=== PATIENT | female | born 1990 | race Caucasian/White ===

== ENCOUNTER 2017-09-20 13:06 | Emergency (ER) | payer MEDICAID ==
[~2017-09-20] VITALS: Ht 167.6 cm; Wt 54.5 kg
[2017-09-20 13:08] VITALS: BP 100/65
== END 2017-09-20 14:20 | disposition home or self-care (01) ==
LOC: ED 14:00
DX: S60.221A Contusion of right hand, initial encounter (principal); F17.200 Nicotine dependence, unspecified, uncomplicated; F32.9 Major depressive disorder, single episode, unspecified; W01.0XXA Fall on same level from slipping, tripping and stumbling without subsequent striking against object, initial encounter; Y93.01 Activity, walking, marching and hiking; Y99.8 Other external cause status; Y92.89 Other specified places as the place of occurrence of the external cause
CPT/HCPCS: 29125; 99284

== ENCOUNTER 2018-01-19 10:32 | Emergency (ER) | payer MEDICAID ==
[~2018-01-19] VITALS: Ht 167.6 cm; Wt 55.2 kg
[2018-01-19 10:38] VITALS: BP 108/74
[2018-01-19] MEDS ORDERED: KETOROLAC 30 MG/1 ML ONE (10:54)
[2018-01-19] MEDS ORDERED: DIAZEPAM 5 MG TABLET ONE (10:54)
[2018-01-19] MEDS ORDERED: KETOROLAC 30 MG/1 ML IM ONE (11:00)
[2018-01-19] MEDS ORDERED: DIAZEPAM 5 MG TABLET PO ONE (11:00)
[2018-01-19] MEDS ORDERED: TEST200V3 IM (11:17)
[2018-01-19 11:34] LABS: MICROSCOPIC NOT IND
[2018-01-19 11:39] LABS: CULTURE INDICATED? NO
== END 2018-01-19 12:17 | disposition home or self-care (01) ==
LOC: ED 12:11
DX: G89.29 Other chronic pain (principal); G89.11 Acute pain due to trauma; M54.5 Low back pain; X58.XXXA Exposure to other specified factors, initial encounter; Y93.89 Activity, other specified; Y92.89 Other specified places as the place of occurrence of the external cause; Y99.8 Other external cause status
CPT/HCPCS: 72110; 81003; 96372; 99285; J1885

== ENCOUNTER 2018-01-26 11:57 | Emergency (ER) | payer MEDICAID ==
[~2018-01-26] VITALS: Ht 167.6 cm; Wt 56.0 kg
[~2018-01-26 11:57] MED LIST: TEST200V3 IM
[2018-01-26] MEDS ORDERED: HYDROcodone/APAP 7.5-325MG/15ML UDC PO ONE (12:30)
[2018-01-26] MEDS ORDERED: DEXAMETHASONE 4 MG TABLET PO ONE (12:30)
[2018-01-26] MEDS ORDERED: HYDROcodone/APAP 7.5-325MG/15ML UDC ONE (12:31)
[2018-01-26] MEDS ORDERED: DEXAMETHASONE 4 MG TABLET ONE (12:31)
[2018-01-26 13:13] VITALS: BP 93/59
== END 2018-01-26 13:15 | disposition home or self-care (01) ==
LOC: ED 13:10
DX: J02.9 Acute pharyngitis, unspecified (principal); J45.909 Unspecified asthma, uncomplicated; F32.9 Major depressive disorder, single episode, unspecified; Z87.891 Personal history of nicotine dependence
CPT/HCPCS: 87081; 87880; 99284

== ENCOUNTER 2018-01-31 12:47 | Emergency (ER) | payer MEDICAID ==
[~2018-01-31] VITALS: Ht 165.1 cm; Wt 55.8 kg
[2018-01-31 12:52] VITALS: BP 111/82
== END 2018-01-31 13:39 | disposition home or self-care (01) ==
LOC: ED 13:20
DX: B34.9 Viral infection, unspecified (principal); J45.909 Unspecified asthma, uncomplicated; F32.9 Major depressive disorder, single episode, unspecified; Z87.19 Personal history of other diseases of the digestive system
CPT/HCPCS: 99283

== ENCOUNTER 2018-06-06 15:59 | Emergency (ER) | payer MEDICAID ==
[~2018-06-06] VITALS: Ht 167.6 cm; Wt 58.0 kg
[2018-06-06 16:23] VITALS: BP 116/75
--- NOTE | 2018-06-06 17:54 | NUR ---
break RN note: report received from SUZETTE Ramos. pt a&o, resps even and unlabored. pt given dc instructions and script. pt educated regarding rx for flexiril. pt amb to dc desk with steady gait, accompanied by s/o. huyen at dc.
== END 2018-06-06 17:55 | disposition home or self-care (01) ==
LOC: ED 16:54
DX: M54.5 Low back pain (principal); J45.909 Unspecified asthma, uncomplicated
CPT/HCPCS: 72110; 99283

== ENCOUNTER 2018-07-15 21:07 | Emergency (ER) | payer MEDICAID ==
[~2018-07-15] VITALS: Ht 167.6 cm; Wt 55.6 kg
[2018-07-15 21:26] VITALS: BP 95/63
== END 2018-07-15 22:08 | disposition home or self-care (01) ==
LOC: ED 22:02
DX: M54.5 Low back pain (principal); Z76.0 Encounter for issue of repeat prescription; J45.909 Unspecified asthma, uncomplicated; F32.9 Major depressive disorder, single episode, unspecified
CPT/HCPCS: 99283

== ENCOUNTER → 2018-09-06 | Outpatient (CLI) | payer MEDICAID | END | disposition home or self-care (01) | LOC: RAD 14:39 | PROVIDERS: ATTEND Neurological Surgery | DX: M54.5 Low back pain (principal); G89.29 Other chronic pain; J45.909 Unspecified asthma, uncomplicated; F32.9 Major depressive disorder, single episode, unspecified; Z87.891 Personal history of nicotine dependence | CPT/HCPCS: 72120 ==

== ENCOUNTER → 2018-09-08 | Outpatient (CLI) | payer MEDICAID | END | disposition home or self-care (01) | LOC: RAD 13:06 | PROVIDERS: ATTEND Neurological Surgery | DX: M54.5 Low back pain (principal) | CPT/HCPCS: 72148 ==

== ENCOUNTER 2019-03-03 11:20 | Emergency (ER) | payer MEDICAID ==
[~2019-03-03] VITALS: Ht 167.6 cm; Wt 57.7 kg
--- NOTE | 2019-03-03 11:54 | NUR ---
FIRST CONTACT WITH PT. PT C/O COLD SYMPTOMS X 2 WEEKS, N/V/D X 1 WEEK. INTERMITTANT LIRA AND CHILLS AT HOME. PT'S AOX4. RESPS EVEN AND UNLABORED. BP/SPO2 MONITORS IN PLACE. CALL LIGHT WITHIN REACH. WARM BLANCKET GIVEN.
--- NOTE | 2019-03-03 12:26 | NUR ---
EDMD AT BEDSIDE TO EVALUATE AT THIS TIME.
[2019-03-03 13:06] VITALS: BP 112/63
[2019-03-03 13:19] LABS: RAPID INFLUENZA A Negative (Negative); RAPID INFLUENZA B Negative (Negative)
--- NOTE | 2019-03-03 13:34 | NUR ---
Patient given discharge instructions and they have confirmed that they understand the instructions. Patient ambulatory with steady gait.
== END 2019-03-03 13:35 | disposition home or self-care (01) ==
LOC: ED 13:25
DX: B34.9 Viral infection, unspecified (principal); Z87.19 Personal history of other diseases of the digestive system; Z87.891 Personal history of nicotine dependence
CPT/HCPCS: 87400; 99283

== ENCOUNTER 2019-11-16 18:43 | Emergency (ER) | payer MEDICAID ==
[~2019-11-16] VITALS: Ht 167.6 cm; Wt 51.6 kg
--- NOTE | 2019-11-16 19:23 | NUR ---
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
[2019-11-16] MEDS ORDERED: KETOROLAC 30 MG/1 ML ONE (19:54)
[2019-11-16] MEDS ORDERED: DIAZEPAM 5 MG TABLET ONE (19:55)
[2019-11-16] MEDS ORDERED: DIAZEPAM 5 MG TABLET PO ONE (20:00)
[2019-11-16] MEDS ORDERED: KETOROLAC 30 MG/1 ML IM ONE (20:00)
[2019-11-16] MEDS ORDERED: LORazepam 1MG TABLET ONE (20:12)
[2019-11-16] MEDS ORDERED: LORazepam 1MG TABLET PO ONE (20:30)
[2019-11-16 22:07] VITALS: BP 94/70
--- NOTE | 2019-11-16 22:08 | NUR ---
PT SLEEPING IN BED WITH PT FRIND AT SIDE, PT HAS NO WANTS OR NEEDS AT THIS TIME, PT ON MONITOR, STOCK ROOM MANAGER WILL CONTINUE TO MONITOR PT.
== END 2019-11-16 22:43 ==
LOC: ED 22:37
DX: J18.9 Pneumonia, unspecified organism (principal); R06.02 Shortness of breath; Z20.828 Contact with and (suspected) exposure to other viral communicable diseases; J45.909 Unspecified asthma, uncomplicated; R00.0 Tachycardia, unspecified; M54.5 Low back pain; G89.29 Other chronic pain; Z87.891 Personal history of nicotine dependence
CPT/HCPCS: 36415; 71046; 72110; 87635; 93005; 96372; 99285; J1885

== ENCOUNTER 2019-12-05 13:29 | Emergency (ER) | payer MEDICAID ==
[~2019-12-05] VITALS: Ht 167.6 cm; Wt 52.3 kg
--- NOTE | 2019-12-05 13:35 | NUR ---
PT BIB [facility] FROM HOME FOR ACUTE ANXIETY/MANIC BEHAVIOR. PT TALKING INCESSANTLY, STATES HE THINKS HE HAD COVID, C/O CYST IN HIS BRAIN. PER EMS, PT HAS BEEN TAKING HIS NORMAL MEDS. PT CURRENTLY LIVES WITH GRANDMOTHER. A&OX4 UPON ARRIVAL. NO INVTERVENTIONS BY EMS. ERP AT BS IMMEDIATELY.
[2019-12-05 14:13] LABS: BASOPHILS # (AUTO) 0.01 x10^3/uL (0-0.1); BASOPHILS % (AUTO) 0 % (0-1); EOSINOPHILS # (AUTO) 0.01 x10^3/uL (0-0.4); EOSINOPHILS % (AUTO) 0 % (1-7); LYMPHOCYTES # (AUTO) 0.66 x10^3/uL (1-3.4); LYMPHOCYTES % (AUTO) 15 % (22-44); MD NO; MEAN CORPUSCULAR HEMOGLOBIN 31.3 pg (27.0-34.8); MEAN CORPUSCULAR HGB CONC 32.8 g/dL (32.4-35.8); MEAN CORPUSCULAR VOLUME 95.3 fL (80-100); MEAN PLATELET VOLUME 7.8 fL (7.4-10.4); MONOCYTES # (AUTO) 0.48 x10^3/uL (0.2-0.8); MONOCYTES % (AUTO) 11 % (2-9); NEUTROPHILS # (AUTO) 3.13 x10^3/uL (1.8-6.8); NEUTROPHILS % (AUTO) 73 % (42-75); PLATELET COUNT 177 x10^3/uL (130-400); RED BLOOD COUNT 3.88 x10^6/uL (3.82-5.3); RED CELL DISTRIBUTION WIDTH 13.8 % (9.6-15.2)
--- NOTE | 2019-12-05 14:13 | NUR ---
PSYCH MARKETING RESEARCHER WAS IN TO SPEAK WITH PT.
[2019-12-05 14:22] LABS: ALBUMIN 3.3 g/dL (3.4-5.0); ANION GAP 5 mmol/L (5-15); CALCIUM 8.3 mg/dL (8.5-10.1); CHLORIDE 112 mmol/L (98-107); CREATININE 0.78 mg/dL (0.55-1.02)
[2019-12-05] MEDS ORDERED: OLANZAPINE 10 MG TABLET ONE ×2 (14:22→14:33)
[2019-12-05 14:24] LABS: SALICYLATE LEVEL < 1.7 mg/dL (2.8-20.0)
[2019-12-05] MEDS ORDERED: OLANZAPINE ODT 10MG PO ONE (14:30)
--- NOTE | 2019-12-05 14:42 | NUR ---
PT MEDICATED PER ORDERS. TALKING ON THE PHONE WITH FRIENDS AND HER "FIANCE". CRYING AT TIMES.
[2019-12-05 15:38] LABS: AMPHETAMINE SCREEN, URINE Negative (Negative); BARBITURATE SCREEN, URINE Negative (Negative); BENZODIAZEPINE SCREEN, URINE Negative (Negative); CANNABINOID SCREEN, URINE Positive (Negative); COCAINE SCREEN, URINE Negative (Negative); METHADONE SCREEN, URINE Negative (Negative); OPIATE SCREEN, URINE Negative (Negative)
--- NOTE | 2019-12-05 15:46 | NUR ---
PT RESTING ON HER SIDE IN [facility] NOW, NO S/S OF DISTRESS.
[2019-12-05 17:29] VITALS: BP 94/58
--- NOTE | 2019-12-05 17:53 | NUR ---
BREAK rn- DISCHARGE INSTRUCTIONS REVIEWED.
[2019-12-05] MEDS ORDERED: DIVA500T2 PO (17:57)
[2019-12-05] MEDS ORDERED: OLAN15TA9 PO (17:57)
[2019-12-05] MEDS ORDERED: BUSP5TAB2 PO (17:57)
== END 2019-12-05 18:12 | disposition home or self-care (01) ==
LOC: ED 13:42
DX: F30.9 Manic episode, unspecified (principal); R06.02 Shortness of breath; J45.909 Unspecified asthma, uncomplicated
CPT/HCPCS: 36415; 71045; 80048; 80164; 80307; 82040; 84703; 85025; 99284